=== PATIENT | female | born 1930 | race Caucasian/White ===

== ENCOUNTER 2017-07-27 16:00 | Emergency (ER) | payer MEDICARE, BC ==
[2015-06-30 13:43] VITALS: BMI 26.6
[~2017-07-27 16:00] MED LIST: ARMOUR THYROID30 MG PO; LISINOPRIL10 MG PO; LOVENOX40 MG/0.4 SC; NEXIUM40 MG PO; PROZAC10 MG PO; VITAMIN D31000 UNI2 PO; XARELTO10 MG PO
[2017-07-27 16:58] LABS: BASOPHILS 0.6 % (0-2); EOSINOPHILS 0.8 % (0-7); HEMATOCRIT 39.8 % (36.0-48.0); HEMOGLOBIN 12.5 g/dL (12-16); IMMATURE GRANULOCYTES 0.2 % (0-5); LYMPHOCYTES 15.8 % (15-50); MCHC 31.4 g/dL (31.0-37.0); MEAN PLATELET VOLUME 11.4 fL (7.4-10.4); MONOCYTES 6.2 % (2-11); NEUTROPHILS 76.4 % (40-80); PLATELET COUNT 172 10x3/uL (130-400); RBC 4.63 10x6/uL (4.00-5.40); RDW 15.8 % (11.5-14.5)
[2017-07-27 17:06] LABS: APTT 25.4 SECONDS (22.8-39.4); INR 0.94 (0.85-1.17); PROTIME 12.2 SECONDS (11.6-15.0)
[2017-07-27 17:10] LABS: ALBUMIN 3.4 g/dL (3.4-5.0); ALKALINE PHOSPHATASE 65 U/L (46-116); ALT (SGPT) 15 U/L (10-68); CALC OSMOLALITY 283 mosm/kg (275-300); CALCIUM 8.5 mg/dL (8.5-10.1); CARBON DIOXIDE 29.9 mmol/L (21.0-32.0); CHLORIDE - SERUM 105 mmol/L (98-107); CREATININE - SERUM 0.7 mg/dL (0.6-1.3); GLUCOSE 92 mg/dL (74-106); POTASSIUM - SERUM 3.7 mmol/L (3.5-5.1); PROTEIN - SERUM 6.4 g/dL (6.4-8.2); SODIUM 141 mmol/L (136-145); UREA NITROGEN 20 mg/dL (7-18); eGFR NON AFRICAN AMERICAN 84 mL/min (90-120)
== END 2017-07-27 21:54 | disposition home or self-care (01) ==
LOC: D.ER 16:00
PROVIDERS: Nurse Practitioner Family
DX: S02.2XXA Fracture of nasal bones, initial encounter for closed fracture (principal); V43.62XA Car passenger injured in collision with other type car in traffic accident, initial encounter; Y93.89 Activity, other specified; Y92.410 Unspecified street and highway as the place of occurrence of the external cause; S16.1XXA Strain of muscle, fascia and tendon at neck level, initial encounter; S29.012A Strain of muscle and tendon of back wall of thorax, initial encounter; S39.012A Strain of muscle, fascia and tendon of lower back, initial encounter; K21.9 Gastro-esophageal reflux disease without esophagitis; I10 Essential (primary) hypertension

== ENCOUNTER 2018-03-30 12:22 | Emergency (ER) | payer MEDICARE, BC ==
[~2018-03-30] VITALS: Ht 165.1 cm; Wt 70.5 kg
[2018-03-30 12:23] VITALS: Ht 165.1 cm; Wt 70.5 kg
[2018-03-30 13:09] LABS: BASOPHILS 0.6 % (0-2); EOSINOPHILS 0.6 % (0-7); HEMOGLOBIN 14.4 g/dL (12-16); IMMATURE GRANULOCYTES 0.2 % (0-5); LYMPHOCYTES 16.4 % (15-50); MCH 30.4 pg (26.0-34.0); MCHC 32.7 g/dL (31.0-37.0); MEAN PLATELET VOLUME 12.5 fL (7.4-10.4); MONOCYTES 5.8 % (2-11); NEUTROPHILS 76.4 % (40-80); PLATELET COUNT 186 10x3/uL (130-400); RBC 4.73 10x6/uL (4.00-5.40); RDW 14.9 % (11.5-14.5); WBC 8.3 10x3/uL (4.8-10.8)
[2018-03-30 13:24] LABS: ALBUMIN 3.6 g/dL (3.4-5.0); ALKALINE PHOSPHATASE 51 U/L (46-116); ALT (SGPT) 19 U/L (10-68); BILIRUBIN - TOTAL 0.58 mg/dL (0.2-1.3); CALC OSMOLALITY 284 mosm/kg (275-300); CALCIUM 8.5 mg/dL (8.5-10.1); CARBON DIOXIDE 26.9 mmol/L (21.0-32.0); CHLORIDE - SERUM 105 mmol/L (98-107); CREATININE - SERUM 0.7 mg/dL (0.6-1.3); GLUCOSE 92 mg/dL (74-106); PROTEIN - SERUM 6.7 g/dL (6.4-8.2); SODIUM 142 mmol/L (136-145); UREA NITROGEN 18 mg/dL (7-18); eGFR NON AFRICAN AMERICAN 83 mL/min (90-120)
[2018-03-30 15:09] VITALS: BP 169/82
== END 2018-03-30 14:48 | disposition home or self-care (01) ==
LOC: D.ER 12:22
PROVIDERS: Family Medicine
DX: T25.122A Burn of first degree of left foot, initial encounter (principal); T25.121A Burn of first degree of right foot, initial encounter; X19.XXXA Contact with other heat and hot substances, initial encounter; Y93.89 Activity, other specified; Y92.010 Kitchen of single-family (private) house as the place of occurrence of the external cause; I10 Essential (primary) hypertension; J70.5 Respiratory conditions due to smoke inhalation

== ENCOUNTER 2019-08-16 20:52 | Inpatient (IN) | payer MEDICARE, BC ==
[~2019-08-16] VITALS: Ht 165.1 cm; Wt 67.1 kg
[2019-08-16 21:54] VITALS: BP 148/78
[2019-08-16 22:53] VITALS: BP 152/71
[2019-08-16 23:39] LABS: ANION GAP 4.3 mmol/L (8-16); CARBON DIOXIDE 26.2 mmol/L (21.0-32.0); CREATININE - SERUM 0.9 mg/dL (0.6-1.3); POTASSIUM - SERUM 3.5 mmol/L (3.5-5.1)
[2019-08-16 23:43] LABS: HEMATOCRIT 43.8 % (36.0-48.0); HEMOGLOBIN 13.8 g/dL (12-16); LYMPHOCYTES 11.8 % (15-50); MCH 29.7 pg (26.0-34.0); MCHC 31.5 g/dL (31.0-37.0); MCV 94.2 fL (80.0-100.0); NEUTROPHILS 83.9 % (40-80); PLATELET COUNT 179 10x3/uL (130-400); RBC 4.65 10x6/uL (4.00-5.40); RDW 12.9 % (11.5-14.5); WBC 11.5 10x3/uL (4.8-10.8)
[2019-08-16 23:44] LABS: ALBUMIN 3.1 g/dL (3.4-5.0); BILIRUBIN - TOTAL 0.26 mg/dL (0.2-1.3); PROTEIN - SERUM 6.2 g/dL (6.4-8.2)
[2019-08-17 00:48] VITALS: BP 106/52; BMI 24.7
[2019-08-17 01:20] LABS: NITRITE NEGATIVE (NEGATIVE)
[2019-08-17 01:21] LABS: BILIRUBIN NEGATIVE (NEGATIVE); GLUCOSE NEGATIVE (NEGATIVE); KETONE SMALL mg/dL (NEGATIVE); RED CELLS - URINE 0-5 /hpf (0-5); UROBILINOGEN NORMAL (NORMAL); WHITE CELLS - URINE 0-5 /hpf (NEGATIVE)
[2019-08-17 01:22] LABS: BACTERIA NONE SEEN /hpf (NEGATIVE); EPITHELIAL CELLS 0-5 /hpf (0-5)
[2019-08-17 04:45] VITALS: BP 126/58
[2019-08-17 06:21] LABS: BASOPHILS 0.3 % (0-2); EOSINOPHILS 0.4 % (0-7); HEMATOCRIT 43.3 % (36.0-48.0); HEMOGLOBIN 13.8 g/dL (12-16); IMMATURE GRANULOCYTES 0.3 % (0-5); LYMPHOCYTES 11.4 % (15-50); MCH 30.2 pg (26.0-34.0); MCHC 31.9 g/dL (31.0-37.0); MCV 94.7 fL (80.0-100.0); MEAN PLATELET VOLUME 11.7 fL (7.4-10.4); MONOCYTES 6.8 % (2-11); NEUTROPHILS 80.8 % (40-80); PLATELET COUNT 188 10x3/uL (130-400); RBC 4.57 10x6/uL (4.00-5.40); RDW 13.6 % (11.5-14.5); WBC 10.3 10x3/uL (4.8-10.8)
[2019-08-17 06:39] LABS: ALBUMIN 3.2 g/dL (3.4-5.0); ALKALINE PHOSPHATASE 59 U/L (30-120); ALT (SGPT) 22 U/L (10-68); BILIRUBIN - TOTAL 0.39 mg/dL (0.2-1.3); CALC OSMOLALITY 293 mosm/kg (275-300); CALCIUM 8.2 mg/dL (8.5-10.1); CARBON DIOXIDE 28.5 mmol/L (21.0-32.0); CHLORIDE - SERUM 105 mmol/L (98-107); CREATININE - SERUM 0.7 mg/dL (0.6-1.3); GLUCOSE 120 mg/dL (74-106); MAGNESIUM - SERUM 1.8 mg/dL (1.8-2.4); PHOSPHOROUS 3.6 mg/dL (2.5-4.9); PROTEIN - SERUM 5.9 g/dL (6.4-8.2); SODIUM 145 mmol/L (136-145); UREA NITROGEN 25 mg/dL (7-18); eGFR NON AFRICAN AMERICAN 83 mL/min (90-120)
[2019-08-17 06:41] LABS: APTT 28.1 SECONDS (22.8-39.4); INR 0.95 (0.85-1.17); PROTIME 12.6 SECONDS (11.6-15.0)
[2019-08-17 06:58] LABS: POTASSIUM - SERUM 4.3 mmol/L (3.5-5.1)
--- NOTE | 2019-08-17 07:30 | NUR ---
REPORT RECEIVED. PT IS ON BEDREST. LEFT HIP FRACTURE. NON SURGICAL AT THIS TIME. PT HAS SCDS ON. IV TO LEFT FOREARM WITH NS AT 100. ON ROOM AIR. PT RESTING QUIETLY AT THIS TIME. WILL CONTINUE TO MONITOR.
[2019-08-17 07:45] VITALS: BP 112/52
--- NOTE | 2019-08-17 08:55 | MORECARE ---
CASE MANAGEMENT DISCHARGE SUMMARY PATIENT: ELVIS SANCHEZ UNIT: [id number] ADM DATE: 08/16/19 AGE: 88 : [birth year] SEX: F ROOM/BED: D.1204 AUTHOR: JANICE DISLA PHYSICIAN: REFERRING PHYSICIAN: SPIKE SANTIAGO MD DATE OF SERVICE: 08/17/19 Discharge Plan Patient Name: ELVIS SANCHEZ [facility] [facility] 1930 Planned Disposition: Anticipated Discharge Date: Discharge Date: Expected LOS: Initial Reviewer: [id number] Initial Review Date: 08/17/2019 Generated: 08/17/19 9:55 am Patient Name: ELVIS SANCHEZ Page [phone] at 0855 All edits/amendments must be made on the electronic document DICTATION DATE: 08/17/1955 POUNCER MACHINE: JAZMINE 08/17/19 0855 RPT#: [id number] DC DATE: STATUS: ADM IN [facility] [address] [place] [address] END OF REPORT
--- NOTE | 2019-08-17 10:50 | MORECARE ---
CASE MANAGEMENT DISCHARGE SUMMARY PATIENT: ELVIS SANCHEZ UNIT: [id number] ADM DATE: 08/16/19 AGE: 88 : [birth year] SEX: F ROOM/BED: D.1204 AUTHOR: JANICE DISLA PHYSICIAN: REFERRING PHYSICIAN: SPIKE SANTIAGO MD DATE OF SERVICE: 08/17/19 Discharge Plan Patient Name: ELVIS SANCHEZ [facility] [facility] 1930 Planned Disposition: Anticipated Discharge Date: Discharge Date: Expected LOS: Initial Reviewer: [id number] Initial Review Date: 08/17/2019 Generated: 08/17/19 11:50 am Last DP export: 08/17/19 7:55 a Patient Name: ELVIS SANCHEZ Page [phone] at 1050 All edits/amendments must be made on the electronic document DICTATION DATE: 08/17/19 1050 3D ARTIST: JAZMINE 08/17/19 1050 RPT#: [id number] DC DATE: STATUS: ADM IN [facility] [address] [place] [address] END OF REPORT
[2019-08-17 11:00] VITALS: BP 120/65
--- NOTE | 2019-08-17 12:29 | MORECARE ---
CASE MANAGEMENT DISCHARGE SUMMARY PATIENT: KEY SANCHEZ UNIT: [id number] ADM DATE: 08/17/19 AGE: 88 : [birth year] SEX: F ROOM/BED: D.1204 AUTHOR: JANICE DISLA PHYSICIAN: REFERRING PHYSICIAN: SPIKE SANTIAGO MD DATE OF SERVICE: 08/17/19 Discharge Plan Patient Name: KEY SANCHEZ Facility: [facility]:[place] : 1930 Planned Disposition: Anticipated Discharge Date: Discharge Date: Expected LOS: Initial Reviewer: [id number] Initial Review Date: 08/17/2019 Generated: 08/17/19 1:28 pm Comments DCP- Discharge Planning Updated by [id number]: Ana Hayes on 08/17/19 11:[address] GAYLE signed per patient for [facility]. CM contacted Gayb with [facility] regarding patient's request for a Medicare Skilled bed upon DC. Faxed available information to [phone]. Coverage Notice Reviewer: [id number] Renuka Hayes Notice Issued Date-Time: 08/17/2019 10:00 Notice Type: Medicare Outpatient Observation Notice Notice Delivered To: Patient Relationship to Patient: Self Real Estate Inspector Name: Key Agosto Delivery Method: HAND - Hand Delivered Linda Days: Prior Verbal Notification: Recipient Understood Notice: Yes Recipient Signature: Yes Med Rec Note Co-signed by Attending: Coverage Notice Comment: CORTEZ delivered to and signed by patient. Original given to Dtr-in-law, one placed on the chart. Reviewer: [id number] Renuka Hayes Notice Issued Date-Time: 08/17/2019 10:00 Notice Type: Patient Choice Letter Notice Delivered To: Patient Relationship to Patient: Self Real Estate Inspector Name: Key Agosto Delivery Method: HAND - Hand Delivered Linda Days: Prior Verbal Notification: Recipient Understood Notice: Yes Recipient Signature: Yes Med Rec Note Co-signed by Attending: Coverage Notice Comment: GAYLE for [facility]. Last DP export: 08/17/19 9:50 a Patient Name: KEY SANCHEZ Page 00229 at 1229 All edits/amendments must be made on the electronic document DICTATION DATE: 08/17/191228 REMOTELY PILOTED VEHICLE CONTROLLER: JAZMINE 08/17/191228 RPT#: [id number] DC DATE: STATUS: ADM IN [facility] [address] [place] [address] END OF REPORT
--- NOTE | 2019-08-17 12:45 | MORECARE ---
CASE MANAGEMENT DISCHARGE SUMMARY PATIENT: KEY SANCHEZ UNIT: [id number] ADM DATE: 08/17/19 AGE: 88 : [birth year] SEX: F ROOM/BED: D.1204 AUTHOR: JANICE DISLA PHYSICIAN: REFERRING PHYSICIAN: SPIKE SANTIAGO MD DATE OF SERVICE: 08/17/19 Discharge Plan Patient Name: KEY SANCHEZ Facility: [facility]:[place] : 1930 Planned Disposition: Anticipated Discharge Date: Discharge Date: Expected LOS: Initial Reviewer: [id number] Initial Review Date: 08/17/2019 Generated: 08/17/19 1:44 pm Comments DCP- Discharge Planning Updated by [id number]: Ana Hayes on 08/17/19 11:[address] GAYLE signed per patient for [facility]. CM contacted Gaby with [facility] regarding patient's request for a Medicare Skilled bed upon DC. Faxed available information to [phone]. Coverage Notice Reviewer: [id number] Renuka Hayes Notice Issued Date-Time: 08/17/2019 10:00 Notice Type: Medicare Outpatient Observation Notice Notice Delivered To: Patient Relationship to Patient: Self Echo Vascular Technologist Name: Key Agosto Delivery Method: HAND - Hand Delivered Linda Days: Prior Verbal Notification: Recipient Understood Notice: Yes Recipient Signature: Yes Med Rec Note Co-signed by Attending: Coverage Notice Comment: CORTEZ delivered to and signed by patient. Original given to Dtr-in-law, one placed on the chart. Reviewer: [id number] Renuka Hayes Notice Issued Date-Time: 08/17/2019 10:00 Notice Type: Patient Choice Letter Notice Delivered To: Patient Relationship to Patient: Self Echo Vascular Technologist Name: Key Agosto Delivery Method: HAND - Hand Delivered Linda Days: Prior Verbal Notification: Recipient Understood Notice: Yes Recipient Signature: Yes Med Rec Note Co-signed by Attending: Coverage Notice Comment: GAYLE for [facility]. Last DP export: 08/17/19 11:29 a Patient Name: KEY SANCHEZ Page [phone] at 1245 All edits/amendments must be made on the electronic document DICTATION DATE: 08/17/191243 ARMORING MACHINE OPERATOR: JAZMINE 08/17/19 124 RPT#: [id number] DC DATE: STATUS: ADM IN [facility] [address] [place] [address] END OF REPORT
[2019-08-17 13:17] VITALS: BMI 24.6
--- NOTE | 2019-08-17 13:45 | NUR ---
GIRMA ABAD, SPOKE WITH JAN DIEHL, REGARDING PT HAVING MUSCLE SPASMS. FAZAL SAID TO WAIT AND LET ORTHO SEE THE PT 1ST. WILL MONITOR.
--- NOTE | 2019-08-17 14:28 | NUR ---
Rehab Note- Acute Inpatient Rehab prescreen order received. Reviewed the patient's chart and also discussed at IDT meeting- the patient is requesting to discharge to [facility] in [place]. Spoke with AMAURY Perez to reasure the patient's discharge plan. Thank you for this referral! Jahaira Stringer RN Clinical Liaison, [facility] Re[facility]
[2019-08-17 15:00] VITALS: BP 120/74
[2019-08-17 16:29] VITALS: Ht 165.1 cm; Wt 67.1 kg
--- NOTE | 2019-08-17 19:25 | NUR ---
PT LYING IN BED RESTING WITHOUT DISTRESS, AOX4. IV LEFT FA INFUSING NS @ 100. SCDS IN PLACE BILAT. ENCOURAGED PT TO USE INCENTIVE SPIROMETER, COUGH AND TURN. PUREWICK IN PLACE. DENIES PAIN OR NEEDS AT THIS TIME. CL IN REACH, WILL CTM
[2019-08-17 20:00] VITALS: BP 93/48
--- NOTE | 2019-08-17 23:00 | NUR ---
PT BED SOAKED. LINENS CHANGED, BED BATH GIVEN AT THIS TIME. TOLERATED WELL. PUREWICK CHANGED AND IN PLACE. DENIES OTHER NEEDS. WILL CTM
[2019-08-18 00:30] VITALS: BP 94/50
--- NOTE | 2019-08-18 03:50 | NUR ---
PT STATES PAIN 10/10 IN BACK AT THIS TIME. GAVE NORCO ORDERED. DENIES OTHER NEEDS. CL IN REACH, WILL CTM
[2019-08-18 04:00] VITALS: BP 129/70
[2019-08-18 06:25] LABS: BASOPHILS 0.4 % (0-2); EOSINOPHILS 1.1 % (0-7); HEMATOCRIT 41.3 % (36.0-48.0); HEMOGLOBIN 12.9 g/dL (12-16); IMMATURE GRANULOCYTES 0.3 % (0-5); MCH 30.1 pg (26.0-34.0); MCHC 31.2 g/dL (31.0-37.0); MCV 96.5 fL (80.0-100.0); MEAN PLATELET VOLUME 11.9 fL (7.4-10.4); MONOCYTES 7.1 % (2-11); NEUTROPHILS 69.1 % (40-80); PLATELET COUNT 176 10x3/uL (130-400); RBC 4.28 10x6/uL (4.00-5.40); RDW 13.7 % (11.5-14.5)
[2019-08-18 06:36] LABS: CALC OSMOLALITY 285 mosm/kg (275-300); CALCIUM 7.7 mg/dL (8.5-10.1); CARBON DIOXIDE 30.9 mmol/L (21.0-32.0); CHLORIDE - SERUM 105 mmol/L (98-107); CREATININE - SERUM 0.6 mg/dL (0.6-1.3); GLUCOSE 111 mg/dL (74-106); POTASSIUM - SERUM 3.7 mmol/L (3.5-5.1); SODIUM 142 mmol/L (136-145); UREA NITROGEN 19 mg/dL (7-18); eGFR NON AFRICAN AMERICAN > 90 mL/min (90-120)
[2019-08-18 06:42] LABS: WBC 7.5 10x3/uL (4.8-10.8)
[2019-08-18 07:55] VITALS: BP 117/67
--- NOTE | 2019-08-18 09:48 | NUR ---
PT ALERT X 4. BREATH SOUNDS CLEAR BILAT. IV TO LEFT FOREARM, PATENT, DRESSING CDI. PT REPORTING NO PAIN AT THIS TIME LONG SHE IS STILL. PUREWICK IN USE. SCD'S ON. BED LOW, CALL LIGHT IN REACH. NO OTHER NEEDS AT THIS TIME.
--- NOTE | 2019-08-18 14:58 | MORECARE ---
CASE MANAGEMENT DISCHARGE SUMMARY PATIENT: KEY SANCHEZ UNIT: [id number] ADM DATE: 08/17/19 AGE: 88 : [birth year] SEX: F ROOM/BED: D.1204 AUTHOR: NIGHAT,DOC PHYSICIAN: REFERRING PHYSICIAN: SPIKE CHRISTIANSON MD DATE OF SERVICE: 08/18/19 Discharge Plan Patient Name: KEY SANCHEZ Facility: [facility]:[place] : 1930 Planned Disposition: Anticipated Discharge Date: Discharge Date: Expected LOS: Initial Reviewer: [id number] Initial Review Date: 08/17/2019 Generated: 08/18/19 3:57 pm Comments DCP- Discharge Planning Updated by [id number]: Ana Hayes on 08/18/19 1:[address] CARLY pending MD completion. Dr. Christianson made aware of same. DCP- Discharge Planning Updated by [id number]: Ana Hayes on 08/17/19 11:[address] GAYLE signed per patient for [facility]. CM contacted Gaby with [facility] regarding patient's request for a Medicare Skilled bed upon DC. Faxed available information to [phone]. Coverage Notice Reviewer: [id number] Renuka Hayes Notice Issued Date-Time: 08/17/2019 10:00 Notice Type: Medicare Outpatient Observation Notice Notice Delivered To: Patient Relationship to Patient: Self Chief Dietitian Name: Key Agosto Delivery Method: HAND - Hand Delivered Linda Days: Prior Verbal Notification: Recipient Understood Notice: Yes Recipient Signature: Yes Med Rec Note Co-signed by Attending: Coverage Notice Comment: CORTEZ delivered to and signed by patient. Original given to Dtr-in-law, one placed on the chart. Reviewer: [id number] - Ana Hayes Notice Issued Date-Time: 08/17/2019 10:00 Notice Type: Patient Choice Letter Notice Delivered To: Patient Relationship to Patient: Self Chief Dietitian Name: Kye Agosto Delivery Method: HAND - Hand Delivered Linda Days: Prior Verbal Notification: Recipient Understood Notice: Yes Recipient Signature: Yes Med Rec Note Co-signed by Attending: Coverage Notice Comment: GAYLE for [facility]. Last DP export: 08/17/19 11:44 a Patient Name: KEY SANCHEZ Page [phone] at 1458 All edits/amendments must be made on the electronic document DICTATION DATE: 08/18/191456 SLAUGHTERER RELIGIOUS RITUAL: JAZMINE 08/18/191456 RPT#: [id number] DC DATE: STATUS: ADM IN [facility] [address] [place] [address] END OF REPORT
--- NOTE | 2019-08-18 17:58 | MORECARE ---
CASE MANAGEMENT DISCHARGE SUMMARY PATIENT: KEY SANCHEZ UNIT: [id number] ADM DATE: 08/17/19 AGE: 88 : [birth year] SEX: F ROOM/BED: D.1204 AUTHOR: NIGHAT,DOC PHYSICIAN: REFERRING PHYSICIAN: SPIKE CHRISTIANSON MD DATE OF SERVICE: 08/18/19 Discharge Plan Patient Name: KEY SANCHEZ Facility: [facility]:[place] : 1930 Planned Disposition: Anticipated Discharge Date: Discharge Date: Expected LOS: Initial Reviewer: [id number] Initial Review Date: 08/17/2019 Generated: 08/18/19 6:57 pm Comments DCP- Discharge Planning Updated by [id number]: Ana Hayes on 08/18/19 1:[address] CARLY pending MD completion. Dr. Christianson made aware of same. DCP- Discharge Planning Updated by [id number]: Ana Hayes on 08/17/19 11:[address] GAYLE signed per patient for [facility]. CM contacted Gaby with [facility] regarding patient's request for a Medicare Skilled bed upon DC. Faxed available information to [phone]. Coverage Notice Reviewer: [id number] Renuka Hayes Notice Issued Date-Time: 08/17/2019 10:00 Notice Type: Medicare Outpatient Observation Notice Notice Delivered To: Patient Relationship to Patient: Self Manager Shipping Name: Key Agosto Delivery Method: HAND - Hand Delivered Linda Days: Prior Verbal Notification: Recipient Understood Notice: Yes Recipient Signature: Yes Med Rec Note Co-signed by Attending: Coverage Notice Comment: CORTEZ delivered to and signed by patient. Original given to Dtr-in-law, one placed on the chart. Reviewer: [id number] - Ana Hayes Notice Issued Date-Time: 08/17/2019 10:00 Notice Type: Patient Choice Letter Notice Delivered To: Patient Relationship to Patient: Self Manager Shipping Name: Key Agosto Delivery Method: HAND - Hand Delivered Linda Days: Prior Verbal Notification: Recipient Understood Notice: Yes Recipient Signature: Yes Med Rec Note Co-signed by Attending: Coverage Notice Comment: GAYLE for [facility]. Last DP export: 08/18/19 1:58 p Patient Name: KEY SANCHEZ Page [phone] at 1758 All edits/amendments must be made on the electronic document DICTATION DATE: 08/18/191756 LETTERSET PRESS SET UP OPERATOR: JAZMINE 08/18/191756 RPT#: [id number] DC DATE: STATUS: ADM IN [facility] [address] [place] [address] END OF REPORT
--- NOTE | 2019-08-18 19:15 | NUR ---
PT SITTING UP IN BED WITHOUT DISTRESS, AOX4. FRIENDS AND GRANDSON AT BEDSIDE. IV LEFT FA SL, NO REDNESS OR SWELLING AT SITE. SCDS ON BILAT. MARTIN ON. PT STATES NO PAIN AT THIS TIME. DRESSING TO LEFT FA SKIN TEAR CDI. DENIES NEEDS. CL IN REACH, WILL CTM
[2019-08-18 20:00] VITALS: BP 152/73
--- NOTE | 2019-08-18 20:00 | NUR ---
PT FELT LIKE SHE HAD TO HAVE A BOWEL MOVEMENT BUT STATED SHE COULD NOT USE BEDPAN. THIS NURSE AND SECOND NURSE ASSISTED PT UP TO BEDSIDE COMMODE WITH MODERATE ASSIST. PT VOIDED BUT NO BM, STATES SHE IS JUST HAVING GAS. PT GIVEN MIRALAX WITH HS MEDS, GAVE NORCO FOR PAIN AFTER AMBULATING. PROVIDED JESSICA CARE AND SET UP NEW PUREWICK. DENIES OTHER NEEDS. CL IN REACH, WILL CTM
[2019-08-19] VITALS: BP 134/67
[2019-08-19 03:50] VITALS: BP 143/77
--- NOTE | 2019-08-19 04:00 | NUR ---
PT STATES PAIN 10/10 AFTER AMBULATING TO BEDSIDE COMMMODE. GAVE NORCO ORDERED. REFUSED BED BATH STATING SHE HURT TOO BAD, STATES MAYBE LATER. DENIES OTHER NEEDS. CL IN REACH, WILL CTM
[2019-08-19 06:22] LABS: BASOPHILS 0.4 % (0-2); EOSINOPHILS 2.2 % (0-7); HEMATOCRIT 38.7 % (36.0-48.0); HEMOGLOBIN 12.5 g/dL (12-16); IMMATURE GRANULOCYTES 0.2 % (0-5); LYMPHOCYTES 14.3 % (15-50); MCH 30.3 pg (26.0-34.0); MCHC 32.3 g/dL (31.0-37.0); MEAN PLATELET VOLUME 11.9 fL (7.4-10.4); MONOCYTES 7.9 % (2-11); PLATELET COUNT 157 10x3/uL (130-400); RBC 4.12 10x6/uL (4.00-5.40); RDW 13.3 % (11.5-14.5); WBC 8.5 10x3/uL (4.8-10.8)
[2019-08-19 06:39] LABS: CALC OSMOLALITY 282 mosm/kg (275-300); CALCIUM 7.9 mg/dL (8.5-10.1); CARBON DIOXIDE 29.3 mmol/L (21.0-32.0); CHLORIDE - SERUM 106 mmol/L (98-107); CREATININE - SERUM 0.6 mg/dL (0.6-1.3); GLUCOSE 105 mg/dL (74-106); POTASSIUM - SERUM 3.6 mmol/L (3.5-5.1); SODIUM 142 mmol/L (136-145); eGFR NON AFRICAN AMERICAN > 90 mL/min (90-120)
[2019-08-19 06:47] LABS: UREA NITROGEN 12 mg/dL (7-18)
[2019-08-19 06:49] LABS: MCV 93.9 fL (80.0-100.0)
--- NOTE | 2019-08-19 07:35 | NUR ---
PT REC'D FROM NIGHT[facility]. PT IS RESTING, EYES CLOSED, RR ARE EVEN AND UNLABORED. WCTM.
[2019-08-19 08:13] VITALS: BP 142/65
--- NOTE | 2019-08-19 11:13 | NUR ---
Nutrition Follow-up: Diet: Regular PO intake: 50% x 1 meal recorded on door, no meals recorded on nursing flowsheet at this time. She reports that her appetite is "not great." She requested PB and crackers at bedside to snack on. Last BM: none recorded since admit. WT: 148# (08/17/19), no new WT Meds noted: miralax. Labs reviewed. Recommend continue current diet. Will honor all food preferences. Will add Boost with meals. RD following.
[2019-08-19 15:51] VITALS: BP 95/47
--- NOTE | 2019-08-19 16:29 | MORECARE ---
CASE MANAGEMENT DISCHARGE SUMMARY PATIENT: KEY SANCHEZ UNIT: [id number] ADM DATE: 08/17/19 AGE: 88 : [birth year] SEX: F ROOM/BED: D.1204 AUTHOR: NIGHAT,DOC PHYSICIAN: REFERRING PHYSICIAN: SPIKE SANTIAGO MD DATE OF SERVICE: 08/19/19 Discharge Plan Patient Name: KEY SANCHEZ Facility: [facility]:[place] : 1930 Planned Disposition: Anticipated Discharge Date: Discharge Date: Expected LOS: Initial Reviewer: [id number] Initial Review Date: 08/17/2019 Generated: 08/19/19 5:28 pm Comments DCP- Discharge Planning Updated by [id number]: Ana Hayes on 08/19/19 3:[address] Received PASSAR exemption from [employer]. Notified Snow Swift LPN of same. Plan is to [facility] 08[facility], via ambulance. Nursing, hSeron PALMER, Lilly PALMER and made aware of same. PASSAR exemption faxed to [facility]. CARLY placed on the chart as part of the permanent record. DCP- Discharge Planning Updated by [id number]: Ana Hayes on 08/18/19 1:[address] CARLY pending MD completion. Dr. Santiago made aware of same. DCP- Discharge Planning Updated by [id number]: Ana Hayes on 08/17/19 11:[address] GAYLE signed per patient for [facility]. CM contacted Gaby with [facility] regarding patient's request for a Medicare Skilled bed upon DC. Faxed available information to [phone]. Coverage Notice Reviewer: [id number] - Ana Hayes Notice Issued Date-Time: 08/17/2019 10:00 Notice Type: Medicare Outpatient Observation Notice Notice Delivered To: Patient Relationship to Patient: Self Dispatch Clerk Name: Key Agosto Delivery Method: HAND - Hand Delivered Linda Days: Prior Verbal Notification: Recipient Understood Notice: Yes Recipient Signature: Yes Med Rec Note Co-signed by Attending: Coverage Notice Comment: CORTEZ delivered to and signed by patient. Original given to Dtr-in-law, one placed on the chart. Reviewer: [id number] - Ana Hayes Notice Issued Date-Time: 08/17/2019 10:00 Notice Type: Patient Choice Letter Notice Delivered To: Patient Relationship to Patient: Self Dispatch Clerk Name: Key Agosto Delivery Method: HAND - Hand Delivered Linda Days: Prior Verbal Notification: Recipient Understood Notice: Yes Recipient Signature: Yes Med Rec Note Co-signed by Attending: Coverage Notice Comment: GAYLE for [facility]. Last DP export: 08/18/19 4:58 p Patient Name: KEY SANCHEZ Page [phone] at 1629 All edits/amendments must be made on the electronic document DICTATION DATE: 08/19/191627 BULK PLANT OPERATOR: JAZMINE 08/19/191627 RPT#: [id number] DC DATE: STATUS: ADM IN [facility] [address] [place] [address] END OF REPORT
--- NOTE | 2019-08-19 17:38 | NUR ---
OT NOTE: PT COMPLETED SUPINE TO SIT AT EOB WITH MOD A . PT COMPLETED SIT TO STAND WITH MOD A. PT COMPLETED STANDING WITH MIN A. PT FOLLOWED ALL PRECAUTIONS. HOWEVER, PT BECAME NAUSEOUS AFTER STANDING. NURSING NOTIFIED. [phone] THANK YOU,RAULITO DE LOS SANTOS
--- NOTE | 2019-08-19 19:15 | NUR ---
PT SITTNG UP IN BED WITHOUT DISTRESS, AOX4. PUREWICK IN PLACE. PT STATES LEFT HIP SORE BUT DENIES NEED FOR PAIN MED. WANTS BATH TONIGHT AND STATES SHE WILL TAKE NORCO AFTER BATH. PROVIDED WATER. DENIES OTHER NEEDS. CL IN REACH, WILL CTM
--- NOTE | 2019-08-19 20:00 | NUR ---
PT GIVEN MIRALAX WITH PRUNE JUICE. DENIES OTEHR NEEDS. CL IN REACH, WILL CTM
[2019-08-19 20:36] VITALS: BP 133/70
--- NOTE | 2019-08-19 21:30 | NUR ---
CHG BATH GIVEN AT THIS TIME. NORCO GIVEN FOR PAIN 10/10 IN LEFT HIP ONCE COMPLETE. DENIES OTHER NEEDS. WILL CTM
[2019-08-20 00:49] VITALS: BP 120/60
[2019-08-20 04:55] VITALS: BP 139/62
[2019-08-20 06:26] LABS: BASOPHILS 0.5 % (0-2); EOSINOPHILS 3.3 % (0-7); HEMATOCRIT 40.3 % (36.0-48.0); IMMATURE GRANULOCYTES 0.3 % (0-5); LYMPHOCYTES 25.7 % (15-50); MCH 30.5 pg (26.0-34.0); MCHC 32.3 g/dL (31.0-37.0); MCV 94.6 fL (80.0-100.0); MEAN PLATELET VOLUME 11.6 fL (7.4-10.4); MONOCYTES 8.8 % (2-11); NEUTROPHILS 61.4 % (40-80); PLATELET COUNT 187 10x3/uL (130-400); RBC 4.26 10x6/uL (4.00-5.40); RDW 13.6 % (11.5-14.5); WBC 7.4 10x3/uL (4.8-10.8)
[2019-08-20 06:55] LABS: CALC OSMOLALITY 281 mosm/kg (275-300); CALCIUM 8.2 mg/dL (8.5-10.1); CHLORIDE - SERUM 106 mmol/L (98-107); CREATININE - SERUM 0.7 mg/dL (0.6-1.3); GLUCOSE 93 mg/dL (74-106); POTASSIUM - SERUM 3.8 mmol/L (3.5-5.1); SODIUM 142 mmol/L (136-145); UREA NITROGEN 9 mg/dL (7-18); eGFR NON AFRICAN AMERICAN 83 mL/min (90-120)
--- NOTE | 2019-08-20 07:00 | NUR ---
PT RESTING QUIETLY WITH EYES CLOSED. PT SLIGHTLY AROUSES WHEN STAFF ENTERS ROOM. RESP EVEN AND UNLABORED. SKIN TEAR NOTED TO LEFT ELBOW. DRESSING INTACT WITH SCANT AMOUNT OF BLOODY DRAINAGE. PUREWICK INTACT WITH YELLOW URINE. CL WITHIN REACH. ENCOURAGED TO CALL WITH NEEDS. CONTINUE POC
[2019-08-20 07:17] VITALS: BP 147/77
[2019-08-20] MEDS ORDERED: HYDROCODON-ACE1 EAC7 PO (08:19)
--- NOTE | 2019-08-20 08:52 | MORECARE ---
CASE MANAGEMENT DISCHARGE SUMMARY PATIENT: KEY SANCHEZ UNIT: [id number] ADM DATE: 08/17/19 AGE: 88 : [birth year] SEX: F ROOM/BED: D.1204 AUTHOR: NIGHAT,DOC PHYSICIAN: REFERRING PHYSICIAN: SPIKE SANTIAGO MD DATE OF SERVICE: 08/20/19 Discharge Plan Patient Name: KEY SANCHEZ Facility: [facility]:[place] : 1930 Planned Disposition: Anticipated Discharge Date: Discharge Date: Expected LOS: Initial Reviewer: [id number] Initial Review Date: 08/17/2019 Generated: 08/20/19 9:51 am Comments DCP- Discharge Planning Updated by [id number]: Ana Hayes on 08/19/19 3:[address] Received PASSAR exemption from [employer]. Notified Snow Swift LPN of same. Plan is [facility], via ambulance. Nursing, Sheron PALMER, Lilly PALMER and made aware of same. PASSAR exemption faxed to [facility]. CARLY placed on the chart as part of the permanent record. DCP- Discharge Planning Updated by [email or web address]: Ana Hayes on 08/18/19 1:[address] CARLY pending MD completion. Dr. Santiago made aware of same. DCP- Discharge Planning Updated by [email or web address]: Ana Hayes on 08/17/19 11:[address] GAYLE signed per patient for [facility]. CM contacted Gaby with [facility]hab regarding patient's request for a Medicare Skilled bed upon DC. Faxed available information to [phone]. Coverage Notice Reviewer: [id number] - Ana Hayes Notice Issued Date-Time: 08/17/2019 10:00 Notice Type: Medicare Outpatient Observation Notice Notice Delivered To: Patient Relationship to Patient: Self Program Aide Group Work Name: Key Agosto Delivery Method: HAND - Hand Delivered Linda Days: Prior Verbal Notification: Recipient Understood Notice: Yes Recipient Signature: Yes Med Rec Note Co-signed by Attending: Coverage Notice Comment: CORTEZ delivered to and signed by patient. Original given to Dtr-in-law, one placed on the chart. Reviewer: [id number] - Ana Hayes Notice Issued Date-Time: 08/17/2019 10:00 Notice Type: Patient Choice Letter Notice Delivered To: Patient Relationship to Patient: Self Program Aide Group Work Name: Key Agosto Delivery Method: HAND - Hand Delivered Linda Days: Prior Verbal Notification: Recipient Understood Notice: Yes Recipient Signature: Yes Med Rec Note Co-signed by Attending: Coverage Notice Comment: GAYLE for [facility]. Last DP export: 08/19/19 3:29 p Patient Name: KEY SANCHEZ Page [phone] at 0852 All edits/amendments must be made on the electronic document DICTATION DATE: 08/20/19850 AUTHOR: JAZMINE 08/20/19850 RPT#: [id number] DC DATE: STATUS: ADM IN [facility] [address] [place] [address] END OF REPORT
--- NOTE | 2019-08-20 09:41 | MORECARE ---
CASE MANAGEMENT DISCHARGE SUMMARY PATIENT: KEY SANCHEZ UNIT: [id number] ADM DATE: 08/17/19 AGE: 88 : [birth year] SEX: F ROOM/BED: D.1204 AUTHOR: NIGHAT,DOC PHYSICIAN: REFERRING PHYSICIAN: SPIKE SANTIAGO MD DATE OF SERVICE: 08/20/19 Discharge Plan Patient Name: KEY SANCHEZ Facility: [facility]:[place] : 1930 Planned Disposition: Anticipated Discharge Date: Discharge Date: Expected LOS: Initial Reviewer: [id number] Initial Review Date: 08/17/2019 Generated: 08/20/19 10:41 am Comments DCP- Discharge Planning Updated by [id number]: Zee Malhotra on 08/20/19 8:[address] DC PLAN: Discharging today to [facility] in a Medicare bed. By ambulance. Nurse report needs to be called to [facility] @ [phone]. Clayton @ [facility] stated they are ready to accept the patient today. Please notify them of approx. time patient will be arriving. Zee Malhotra RN, [facility] DCP- Discharge Planning Updated by [id number]: Ana Hayse on 08/19/19 3:[address] Received PASSAR exemption from [employer]. Notified Snow Swift LPN of same. Plan is to [facility], via ambulance. Nursing, Sheron PALMER, Lilly PALMER and made aware of same. PASSAR exemption faxed to [facility]. CARLY placed on the chart as part of the permanent record. DCP- Discharge Planning Updated by [id number]: Ana Hayes on 08/18/19 1:[address] CARLY pending MD completion. Dr. Santiago made aware of same. DCP- Discharge Planning Updated by [id number]: Ana Hayes on 08/17/19 11:[address] GAYLE signed per patient for [facility]. contacted Gaby with [facility]hab regarding patient's request for a Medicare Skilled bed upon DC. Faxed available information to [phone]. Coverage Notice Reviewer: [id number] - Ana Hayes Notice Issued Date-Time: 08/17/2019 10:00 Notice Type: Medicare Outpatient Observation Notice Notice Delivered To: Patient Relationship to Patient: Self Ticket Taker Name: Key Agosto Delivery Method: HAND - Hand Delivered Linda Days: Prior Verbal Notification: Recipient Understood Notice: Yes Recipient Signature: Yes Med Rec Note Co-signed by Attending: Coverage Notice Comment: CORTEZ delivered to and signed by patient. Original given to Dtr-in-law, one placed on the chart. Reviewer: [id number] Renuka Hayes Notice Issued Date-Time: 08/17/2019 10:00 Notice Type: Patient Choice Letter Notice Delivered To: Patient Relationship to Patient: Self Ticket Taker Name: Key Agosto Delivery Method: HAND - Hand Delivered Linda Days: Prior Verbal Notification: Recipient Understood Notice: Yes Recipient Signature: Yes Med Rec Note Co-signed by Attending: Coverage Notice Comment: GAYLE for [facility]. Last DP export: 08/20/19 7:52 a Patient Name: KEY SANCHEZ Page [phone] at 0941 All edits/amendments must be made on the electronic document DICTATION DATE: 08/20/19940 MEASURER: JAZMINE 08/20/19940 RPT#: [id number] DC DATE: STATUS: ADM IN [facility] [address] [place] [address] END OF REPORT
--- NOTE | 2019-08-20 10:24 | NUR ---
PT REPORT CALLED TO [facility] IN [facility]. DISCHARGE INSTRUCTIONS PROVIDED TO PT AND FAMILY. PT DENIES QUESTIONS OR CONCERNS AT THIS TIME. AMBULANCE CALLED FOR TRANSPORTATION.
--- NOTE | 2019-08-20 12:40 | MORECARE ---
CASE MANAGEMENT DISCHARGE SUMMARY PATIENT: KEY SANCHEZ UNIT: [id number] ADM DATE: 08/17/19 AGE: 88 : [birth year] SEX: F ROOM/BED: D.1204 AUTHOR: NIGHAT,DOC PHYSICIAN: REFERRING PHYSICIAN: SPIKE SANTIAGO MD DATE OF SERVICE: 08/20/19 Discharge Plan Patient Name: KEY SANCHEZ Facility: [facility]:[place] : 1930 Planned Disposition: Anticipated Discharge Date: Discharge Date: 08/20/2019 Expected LOS: Initial Reviewer: [email or web address] Initial Review Date: 08/17/2019 Generated: 08/20/19 1:39 pm Comments DCP- Discharge Planning Updated by [email or web address]: Zee Malhotra on 08/20/19 8:[address] DC PLAN: Discharging today to [facility] in a Medicare bed. By ambulance. Nurse report needs to be called to [facility] @ [phone]. [place] @ [facility] stated they are ready to accept the patient today. Please notify them of approx. time patient will be arriving. Zee Malhotra RN, [facility] DCP- Discharge Planning Updated by [id number]: Ana Hayes on 08/19/19 3:[address] Received PASSAR exemption from [employer]. Notified Snow Swift LPN of same. Plan is to DC to [facility] 08/19, via ambulance. Nursing, Sheron PALMER, Lilly PALMER and made aware of same. PASSAR exemption faxed to [facility]. CARLY placed on the chart as part of the permanent record. DCP- Discharge Planning Updated by [id number]: Ana Hayes on 08/18/19 1:[address] CARLY pending MD completion. Dr. Santiago made aware of same. DCP- Discharge Planning Updated by [id number]: Ana Hayes on 08/17/19 11:[address] GAYLE signed per patient for [facility]. contacted Gaby with [facility] regarding patient's request for a Medicare Skilled bed upon DC. Faxed available information to [phone]. External Providers External Provider: [facility] Next Contact Date: Service Request Date: Service Type: Resolution: Reviewer: Comments: Coverage Notice Reviewer: [id number] Renuka Ana Abigail Notice Issued Date-Time: 08/17/2019 10:00 Notice Type: Medicare Outpatient Observation Notice Notice Delivered To: Patient Relationship to Patient: Self Videogame Tester Name: Key Agosto Delivery Method: HAND - Hand Delivered Linda Days: Prior Verbal Notification: Recipient Understood Notice: Yes Recipient Signature: Yes Med Rec Note Co-signed by Attending: Coverage Notice Comment: CORTEZ delivered to and signed by patient. Original given to Dtr-in-law, one placed on the chart. Reviewer: [id number] Renuka Ana Abigail Notice Issued Date-Time: 08/17/2019 10:00 Notice Type: Patient Choice Letter Notice Delivered To: Patient Relationship to Patient: Self Videogame Tester Name: Key Agosto Delivery Method: HAND - Hand Delivered Linda Days: Prior Verbal Notification: Recipient Understood Notice: Yes Recipient Signature: Yes Med Rec Note Co-signed by Attending: Coverage Notice Comment: GAYLE for [facility]. Last DP export: 08/20/19 8:41 a Patient Name: KEY SANCHEZ Page [id number] at 1240 All edits/amendments must be made on the electronic document DICTATION DATE: 08/20/19 1239 NOTE TAKER: JAZMINE 08/20/19 1239 RPT#: [id number] DC DATE:08/20/19 STATUS: DIS IN [facility] [address] [place] [address] END OF REPORT
== END 2019-08-20 11:43 | DRG 536 ==
LOC: D.ER 20:52 → OBSVTIME 22:40 → D.M3 22:40
PROVIDERS: Family Medicine; ADMIT Internal Medicine Nephrology; ATTEND Internal Medicine Nephrology
DX: S72.125A Nondisplaced fracture of lesser trochanter of left femur, initial encounter for closed fracture (principal); E87.1 Hypo-osmolality and hyponatremia; W19.XXXA Unspecified fall, initial encounter; I10 Essential (primary) hypertension; F41.8 Other specified anxiety disorders; Z87.891 Personal history of nicotine dependence